=== PATIENT | female | born 1970 | race American Indian/Alaskan Native ===

== ENCOUNTER 2018-11-30 20:03 | Inpatient (IN) | payer MEDICARE ==
[2018-11-30 21:26] LABS: Basophils # (Auto) 0.1 K/mm3 (0.0-0.1); Basophils % (Auto) 0.4 % (0.0-1.8); Eosinophils # (Auto) 0.1 K/mm3 (0.0-0.4); Eosinophils % (Auto) 0.3 % (0.0-4.3); Hematocrit 35.4 % (30.3-42.9); Hemoglobin 11.3 gm/dl (10.1-14.3); Lymphocytes # (Auto) 2.4 K/mm3 (1.2-5.4); Mean Corpuscular HGB Conc 32 % (30-34); Mean Corpuscular Volume 86 fl (79-97); Monocytes # (Auto) 1.8 K/mm3 (0.0-0.8); Monocytes % (Auto) 12.4 % (0.0-7.3); Platelet Count 323 K/mm3 (140-440); Red Blood Count 4.11 M/mm3 (3.65-5.03); Red Cell Distribution Width 13.7 % (13.2-15.2)
[2018-11-30 21:35] LABS: BUN/Creatinine Ratio 11; Blood Urea Nitrogen 10 mg/dL (7-17); Calcium 9.1 mg/dL (8.4-10.2); Hemolysis Index 5
[2018-11-30] MEDS ORDERED: ATROVENT IH ONE (21:51)
[2018-11-30] MEDS ORDERED: SOLU-Medrol IV ONE (21:51)
[2018-11-30] MEDS ORDERED: PROVENTIL IH ONE (21:51)
[2018-11-30] MEDS ORDERED: TYLENOL PO ONE (21:52)
[2018-11-30] MEDS ORDERED: LEVAQUIN 750MG/150ML 750 MG/150 ML BAG IV ONE (21:52)
--- NOTE | 2018-11-30 22:09 | XRay Report ---
FINAL REPORT EXAM: XR CHEST ROUTINE 2V HISTORY: Shortness of breath TECHNIQUE: PA and lateral views of the chest Comparison: None FINDINGS: There are bilateral pulmonary infiltrates, left greater than right. There is no definite evidence of pleural effusion. The cardiac silhouette appears to be normal size. The thoracic aorta is not well visualized. There appears to be distention of the esophagus which is air-filled. The bony structures are notable for dextrocurvature of the thoracic spine. IMPRESSION: 1. Bilateral pulmonary infiltrates, left greater than right. Comparison with previous chest x-ray or CT of the chest would be helpful for further evaluation. 2. Appearance of distention of the esophagus which is air-filled.
--- NOTE | 2018-11-30 22:13 | Emergency Department Report ---
ED Shortness of Breath HPI - General Chief Complaint: Dyspnea/Respdistress Stated Complaint: SHORTNESS OF BREATH, FATIGUE Time Seen by Provider: 11/30/18 21:41 Source: patient Mode of arrival: Ambulatory Limitations: No Limitations - History of Present Illness Initial Comments: 48-year-old female with history of sarcoidosis, chronically on 2 L O2, presents with increasing shortness of breath, productive cough, fever, generalized weakness over the last 3 days. MD Complaint: shortness of breath, cough -: days(s) (3) Severity: moderate Consistency: constant Improves With: nothing Worsens With: nothing Known History Of: other (sarcoidosis) Associated Symptoms: fever, cough - Related Data Allergies Allergy/AdvReac Type Severity Reaction Status Date / Time No Known Allergies Allergy Verified 11/30/18 20:24 ED Review of Systems ROS: Stated complaint: SHORTNESS OF BREATH, FATIGUE Other details as noted in HPI Comment: All other systems reviewed and negative Constitutional: fever Respiratory: cough, shortness of breath Cardiovascular: denies: chest pain Gastrointestinal: nausea, vomiting, diarrhea ED Past Medical Hx - Past Medical History Previous Medical History?: Yes Hx Hypertension: Yes Hx Asthma: Yes Additional medical history: p fibrosis - Surgical History Past Surgical History?: No - Social History Smoking Status: Never Smoker Substance Use Type: None ED Physical Exam - General Limitations: No Limitations General appearance: alert - Head Head exam: Present: atraumatic, normocephalic - Eye Eye exam: Present: normal appearance - ENT ENT exam: Present: mucous membranes moist - Neck Neck exam: Present: normal inspection - Respiratory Respiratory exam: Present: wheezes, rales - Cardiovascular Cardiovascular Exam: Present: normal rhythm, tachycardia - GI/Abdominal GI/Abdominal exam: Present: soft. Absent: distended - Extremities Exam Extremities exam: Present: normal inspection - Neurological Exam Neurological exam: Present: alert, oriented X3 - Psychiatric Psychiatric exam: Present: normal affect, normal mood - Skin Skin exam: Present: warm, dry, intact, normal color ED Course Vital Signs 11/30/18 11/30/18 11/30/18 20:22 21:35 21:39 Temperature 100.5 F H Pulse Rate 133 H 118 H Pulse Rate [ Anterior Bilateral Throughout] Respiratory 18 26 H Rate Respiratory Rate [Anterior Bilateral Throughout] Blood Pressure 158/89 Blood Pressure 132/86 [Left] O2 Sat by Pulse 99 98 Oximetry 11/30/18 11/30/18 11/30/18 21:45 22:01 22:15 Temperature Pulse Rate 120 H 121 H 115 H Pulse Rate [ Anterior Bilateral Throughout] Respiratory 18 15 19 Rate Respiratory Rate [Anterior Bilateral Throughout] Blood Pressure 132/86 132/86 132/86 Blood Pressure [Left] O2 Sat by Pulse 98 99 100 Oximetry 11/30/18 11/30/18 11/30/18 22:31 22:34 23:00 Temperature Pulse Rate 120 H 112 H Pulse Rate [ 98 H Anterior Bilateral Throughout] Respiratory 14 15 Rate Respiratory 12 Rate [Anterior Bilateral Throughout] Blood Pressure 132/86 132/86 Blood Pressure [Left] O2 Sat by Pulse 98 Oximetry 11/30/18 11/30/18 11/30/18 23:15 23:31 23:38 Temperature Pulse Rate 105 H 109 H Pulse Rate [ 97 H Anterior Bilateral Throughout] Respiratory 20 20 Rate Respiratory 14 Rate [Anterior Bilateral Throughout] Blood Pressure 116/71 116/71 Blood Pressure [Left] O2 Sat by Pulse 99 99 Oximetry ED Medical Decision Making - Lab Data Result diagrams: 11/30/18 21:00 11/30/18 21:00 - EKG Data -: EKG Interpreted by Nh EKG shows normal: sinus rhythm, axis, intervals, QRS complexes, ST-T waves Rate: tachycardia (rate 132) - EKG Data Interpretation: no acute changes - Radiology Data Radiology results: report reviewed, image reviewed - Medical Decision Making A 89-year-old female with sarcoidosis presents with fever, increasing shortness of breath, cough, generalized weakness. O2 sats is normal. Patient with fever of 100.5, elevated WBCs of 14.9. Lactic acid normal. Chest x-ray shows bilateral infiltrates. No previous chest x-rays available for comparison. The patient likely has an abnormal chest x-ray given her diagnosis of sarcoidosis. Levaquin given, blood cultures time. Patient given Solu-Medrol and albuterol/Atrovent nebulizer treatments. She will be admitted to hospitalist, Dr. Marie. - Differential Diagnosis COPD, pneumonia, pulm edema Critical care attestation.: If time is entered above; I have spent that time in minutes in the direct care of this critically ill patient, excluding procedure time. ED Disposition Clinical Impression: Pneumonia Disposition: OP ADMIT IP TO THIS HOSP Is pt being admited?: Yes Condition: Stable Time of Disposition: 22:12
[2018-11-30] MEDS ORDERED: TYLENOL PO PRN (23:00)
[2018-11-30] MEDS ORDERED: ROBITUSSIN PO PRN (23:00)
[2018-11-30] MEDS ORDERED: PROVENTIL IH PRN (23:01)
[2018-11-30] MEDS ORDERED: ZOFRAN IV PRN (23:01)
[2018-12-01] MEDS: SOLU-Medrol IV SCH ×3 (05:37→21:48)
--- NOTE | 2018-12-01 06:25 | History and Physical Report ---
CHIEF COMPLAINT: Shortness of breath. HISTORY OF PRESENT ILLNESS: The patient is a 48-year-old female with past history of sarcoidosis, on home O2, presenting with shortness of breath and cough, productive of green sputum. Also, the patient has associated history of fever and generalized weakness going on for about 3 days. There is no history of chest pain. No history of nausea or vomiting. The patient was seen in the Emergency Room. PAST MEDICAL HISTORY: Pertinent for sarcoidosis. Also, the patient has past medical history of hypertension, asthma. PAST SURGICAL HISTORY: Unremarkable. FAMILY HISTORY: Family history is noncontributory. SOCIAL HISTORY: The patient does not smoke, does not drink alcohol and does not use illicit drugs. MEDICATIONS: The patient's home medications include amlodipine 5 mg by mouth daily. Also, the patient is on losartan 100 mg daily. ALLERGIES: There are no known drug allergies. REVIEW OF SYSTEMS: CONSTITUTIONAL: There is fever. There is chills with no diaphoresis. HEENT: There is no headache or sore throat. CARDIOVASCULAR SYSTEM: There is no chest pain or orthopnea. RESPIRATORY SYSTEM: Shortness of breath is present. Cough is present. GASTROINTESTINAL SYSTEM: There is no nausea, no vomiting, no abdominal pain, diarrhea or constipation. NEUROLOGICAL SYSTEM: Generalized weakness noted. No numbness. No dizziness, no altered mental status. MUSCULOSKELETAL SYSTEM: There is no joint pain or swelling. DERMATOLOGICAL SYSTEM: There is no skin rash or itching. GENITOURINARY SYSTEM: There is no dysuria, hematuria or flank pain. Rest of system review is normal. PHYSICAL EXAMINATION: GENERAL: At the time of exam, the patient was found to be alert, oriented x 3 and in mild distress due to shortness of breath. VITAL SIGNS: At the time of presentation showed temperature of 100.5 degrees Fahrenheit, pulse of 133, respirations 18, blood pressure 158/89, O2 sat of 99% on room air. HEENT: Showed pupils to be equal, round, reactive to light and accommodation. Extraocular muscles are intact. NECK: Supple with no JVD or carotid bruit. CARDIOVASCULAR SYSTEM: Showed normal first and second heart sounds with no gallops or murmur. RESPIRATORY SYSTEM: Show good air entry on both sides of the lungs with bilateral scattered crackles and no use of any accessory muscles. GASTROINTESTINAL SYSTEM: Show abdomen to be full, soft, nontender with no organomegaly or rigidity. NEUROLOGICAL: Shows no focal deficit. MUSCULOSKELETAL SYSTEM: Show no joint swelling or tenderness. DERMATOLOGIC SYSTEM: Show no skin rash. GENITOURINARY SYSTEM: Show no costovertebral angle tenderness. PERTINENT LABORATORY DATA AND IMAGING STUDIES: The patient has chest x-ray done that shows bilateral pulmonary infiltrate, left greater than right and the radiologist say that comparison with previous chest x-ray or CT of the chest will be helpful for further evaluation. Appearance of distention of the esophagus, was also noted. Lab results: The patient has CBC done that shows elevated white count of 14,900 with normal hemoglobin, normal hematocrit with elevated segmented neutrophil of 70.9 and the CBC differential. The patient's chemistry showed elevated CO2 of 32 with the rest of chemistry being unremarkable. DIAGNOSES: 1. Bilateral pneumonia. 2. Dyspnea. 3. Chronic sarcoidosis. PLAN OF ACTION: 1. The patient will be admitted to [facility]. 2. The patient will be on IV Levaquin 750 mg daily. 3. The patient will also be on IV methylprednisolone or Solu-Medrol 60 mg q. 8 hours. 4. The patient will be on IV Zofran 4 mg every 8 hours as needed for nausea and vomiting and will be on Tylenol 650 mg by mouth every 4 hours for fever and headache. 5. The patient will be on albuterol nebulizer 2.5 mg every 6 hours as needed for shortness of breath. 6. The patient will be on Tylenol 650 mg by mouth every 4 hours for fever and headache and will be on home medications as shown in medical reconciliation section. 7. The patient will be on Robitussin 200 mg by mouth every 4 hours for cough. 8. The patient will be on oxygen via nasal cannula at 2 liters per minute. 9. The patient's diet will be low sodium diet. JOB# [id number] OCN/NTS MTDD
[2018-12-01 08:18] LABS: Basophils # (Auto) 0.1 K/mm3 (0.0-0.1); Basophils % (Auto) 0.6 % (0.0-1.8); Hematocrit 34.4 % (30.3-42.9); Hemoglobin 11.2 gm/dl (10.1-14.3); Lymphocytes # (Auto) 1.2 K/mm3 (1.2-5.4); Lymphocytes % (Auto) 9.2 % (13.4-35.0); Mean Corpuscular HGB Conc 33 % (30-34); Mean Corpuscular Volume 84 fl (79-97); Monocytes # (Auto) 0.4 K/mm3 (0.0-0.8); Monocytes % (Auto) 3.2 % (0.0-7.3); Platelet Count 324 K/mm3 (140-440); Red Blood Count 4.08 M/mm3 (3.65-5.03); Red Cell Distribution Width 13.6 % (13.2-15.2)
[2018-12-01 08:34] LABS: BUN/Creatinine Ratio 16; Blood Urea Nitrogen 11 mg/dL (7-17); Calcium 9.1 mg/dL (8.4-10.2); Hemolysis Index 1
[2018-12-01] MEDS: NORVASC PO SCH (09:37)
[2018-12-01] MEDS: COZAAR PO SCH (09:37)
[2018-12-01] MEDS: PERCOCET 5/325 PO PRN ×2 (09:58→19:43)
[2018-12-01] MEDS ORDERED: NON-FORMULARY (Losartan [Cozaar] 100 MG) PO SCH (10:00)
[2018-12-01] MEDS ORDERED: NON-FORMULARY (Amlodipine 5 MG) PO SCH (10:00)
[2018-12-01] MEDS ORDERED: D50W (25GM) Syringe IV PRN (11:01)
--- NOTE | 2018-12-01 11:41 | Progress Note ---
Assessment and Plan Assessment and plan: Sepsis due to bilateral pneumonia - Evidenced by fever, tachycardia and tachypnea - Patient is on IV Levaquin - Follow blood cultures UTI - Patient is complaining frequency and foul-smelling urine - Urinalysis Chronic respiratory failure secondary to Sarcoidosis - On IV Solu-Medrol, breathing treatment, oxygen support - Patient is on home oxygen 2 L DVT prophylaxis - on lovenox History Interval history: Patient was seen and evaluated this morning, patient's shortness of breath is getting better. Hospitalist Physical - Physical exam Narrative exam: Not in cardiopulmonary distress. The patient appeared well nourished and normally developed. Vital signs as documented. Head exam is unremarkable. No scleral icterus . Neck is without jugular venous distension, thyromegaly, or carotid bruits. Lungs breath sounds left side of the lung. Cardiac exam reveals regular rate and Rhythm. Abdominal exam reveals normal bowel sounds. Extremities are nonedematous and both femoral and pedal pulses are normal. GROUND SUPPORT EQUIPMENT MECHANIC: Alert and oriented 3. No focal weakness. - Constitutional Vitals: Temp Pulse Resp BP Pulse Ox 98.1 F 85 20 124/70 96 12/01/18 05:59 12/01/18 05:59 12/01/18 05:59 12/01/18 05:59 12/01/18 10:00 Results - Labs CBC & Chem 7: 12/01/18 07:55 12/01/18 07:55 Labs: Laboratory Last Values WBC 12.6 K/mm3 (4.5-11.0) H 12/01/18 07:55 RBC 4.08 M/mm3 (3.65-5.03) 12/01/18 07:55 Hgb 11.2 gm/dl (10.1-14.3) 12/01/18 07:55 Hct 34.4 % (30.3-42.9) 12/01/18 07:55 MCV 84 fl (79-97) 12/01/18 07:55 MCH 28 pg (28-32) 12/01/18 07:55 MCHC 33 % (30-34) 12/01/18 07:55 RDW 13.6 % (13.2-15.2) 12/01/18 07:55 Plt Count 324 K/mm3 (140-440) 12/01/18 07:55 Lymph % (Auto) 9.2 % (13.4-35.0) L 12/01/18 07:55 [place] % (Auto) 3.2 % (0.0-7.3) 12/01/18 07:55 Eos % (Auto) 0.0 % (0.0-4.3) 12/01/18 07:55 Baso % (Auto) 0.6 % (0.0-1.8) 12/01/18 07:55 Lymph # 1.2 K/mm3 (1.2-5.4) 12/01/18 07:55 [place] # 0.4 K/mm3 (0.0-0.8) 12/01/18 07:55 Eos # 0.0 K/mm3 (0.0-0.4) 12/01/18 07:55 Baso # 0.1 K/mm3 (0.0-0.1) 12/01/18 07:55 Seg Neutrophils % 87.0 % (40.0-70.0) H 12/01/18 07:55 Seg Neutrophils # 11.0 K/mm3 (1.8-7.7) H 12/01/18 07:55 Sodium 140 mmol/L (137-145) 12/01/18 07:55 Potassium 4.4 mmol/L (3.6-5.0) D 12/01/18 07:55 Chloride 97.7 mmol/L (98-107) L 12/01/18 07:55 Carbon Dioxide 29 mmol/L (22-30) 12/01/18 07:55 Anion Gap 18 mmol/L 12/01/18 07:55 BUN 11 mg/dL (7-17) 12/01/18 07:55 Creatinine 0.7 mg/dL (0.7-1.2) 12/01/18 07:55 Estimated GFR > 60 ml/min 12/01/18 07:55 BUN/Creatinine Ratio 16 % 12/01/18 07:55 Glucose 245 mg/dL (65-100) H 12/01/18 07:55 Lactic Acid 0.60 mmol/L (0.7-2.0) L 11/30/18 22:38 Calcium 9.1 mg/dL (8.4-10.2) 12/01/18 07:55 NT-Pro-B Natriuret Pep 71.56 pg/mL (0-450) 11/30/18 21:54
[2018-12-01] MEDS: HumaLOG SUB-Q SCH ×3 (13:23→21:49)
[2018-12-01 16:08] LABS: Bilirubin,Urine NEG (Negative); Blood,Urine NEG (Negative); Color,Urine Yellow (Yellow); Mucus,Urine FEW /HPF
[2018-12-01] MEDS ORDERED: LOVENOX SUB-Q SCH (22:00)
[2018-12-01] MEDS ORDERED: LEVAQUIN 750MG/150ML 750 MG/150 ML BAG IV SCH (22:00)
[2018-12-02] MEDS: SOLU-Medrol IV SCH (05:22)
[2018-12-02 06:54] LABS: Basophils % (Auto) 0.2 % (0.0-1.8); Lymphocytes # (Auto) 1.7 K/mm3 (1.2-5.4); Mean Corpuscular HGB Conc 31 % (30-34); Mean Corpuscular Volume 86 fl (79-97); Platelet Count 373 K/mm3 (140-440); Red Blood Count 4.07 M/mm3 (3.65-5.03); Red Cell Distribution Width 13.9 % (13.2-15.2)
[2018-12-02 07:13] LABS: BUN/Creatinine Ratio 23; Blood Urea Nitrogen 16 mg/dL (7-17); Calcium 9.4 mg/dL (8.4-10.2); Hemolysis Index 1
[2018-12-02] MEDS: HumaLOG SUB-Q SCH ×2 (07:30→12:51)
[2018-12-02 07:57] VITALS: BP 146/95
[2018-12-02] MEDS: COZAAR PO SCH (08:59)
[2018-12-02] MEDS: NORVASC PO SCH (09:00)
[2018-12-02] MEDS ORDERED: DELTASONE PO SCH (10:00)
--- NOTE | 2018-12-02 10:37 | Discharge Summary ---
Providers - Providers Date of Admission: 11/30/18 22:20 Date of discharge: 12/02/18 Attending physician: MARY JANE VILLALBA MD Primary care physician: CERTIFIED PROSTHETIST Hospitalization Reason for admission: Pneumonia, sarcoidosis Condition: Stable Pertinent studies: Chest x-ray IMPRESSION: 1. Bilateral pulmonary infiltrates, left greater than right. Comparison with previous chest x-ray or CT of the chest would be helpful for further evaluation. 2. Appearance of distention of the esophagus which is air-filled. Hospital course: 48-year-old -[place] female with past medical history significant for morbid obesity, sarcoidosis, chronic respiratory failure on home oxygen presented to the emergency department for complaints of cough, fever. Patient was worked up in the emergency department and found to have sepsis secondary to bilateral pneumonia, chronic respiratory failure. Patient was admitted and was treated with IV antibiotic, breathing treatments, steroid and patient's symptoms resolved and discharged home. At a time of discharge patient was symptomatic but this was increased due to leukocytosis. Patient was given prescriptions for tapering dose of steroid, Levaquin, guaifenesin and advised to continue on all medications and her home oxygen as at time of discharge. patient's questions an d concerns were addressed as a bedside. Disposition: DC-01 TO HOME OR SELFCARE Time spent for discharge: 32 minutes - Discharge Diagnoses (1) Sarcoidosis Status: Chronic (2) Chronic respiratory failure Status: Chronic (3) Pneumonia Status: Acute Qualifiers: Laterality: bilateral Lung location: lower lobe of lung (4) Sepsis Status: Acute Qualifiers: Sepsis type: sepsis due to unspecified organism Qualified Code(s): A41.9 - Sepsis, unspecified organism Core Measure Documentation - Palliative Care Palliative Care/ Comfort Measures: Not Applicable - Core Measures Any of the following diagnoses?: none Exam - Physical Exam Narrative exam: Not in cardiopulmonary distress. The patient appeared well nourished and normally developed. Vital signs as documented. Head exam is unremarkable. No scleral icterus . Neck is without jugular venous distension, thyromegaly, or carotid bruits. Lungs breath sounds left side of the lung. Cardiac exam reveals regular rate and Rhythm. Abdominal exam reveals normal bowel sounds. Extremities are nonedematous and both femoral and pedal pulses are normal. MATHEMATICS LECTURER: Alert and oriented 3. No focal weakness. - Constitutional Vitals: Temp Pulse Resp BP Pulse Ox 98.4 F 78 20 146/95 98 12/02/18 07:56 12/02/18 07:56 12/02/18 07:56 12/02/18 07:56 12/02/18 07:56 Plan Activity: no restrictions Weight Bearing Status: Full Weight Bearing Diet: regular Additional Instructions: follow up at [facility] in 1-2 weeks if no established PCP. Follow up with: PRIMARY CARE, [Primary Care Provider] - 3-5 Days Prescriptions: guaiFENesin [Robitussin] 200 mg PO Q4H PRN #1 bottle PRN Reason: Cough levoFLOXacin [Levaquin] 750 mg PO QDAY #7 tablet Prednisone [predniSONE 5 mg (6-Day Pack, 21 Tabs)] 5 mg PO .TAPER #1 tab.ds.pk
== END 2018-12-02 16:00 | disposition home or self-care (01) | DRG 871 ==
LOC: EDSEX → ED 20:03 → 4A 22:20
PROVIDERS: ADMIT Internal Medicine; ATTEND Internal Medicine
PROC: 5A09357 Assistance with Respiratory Ventilation, Less than 24 Consecutive Hours, Continuous Positive Airway Pressure (ICD-10-PCS; principal; 2018-12-01)
PROC: 5A09357 Assistance with Respiratory Ventilation, Less than 24 Consecutive Hours, Continuous Positive Airway Pressure (ICD-10-PCS; 2018-12-02)
DX: A41.9 Sepsis, unspecified organism (principal); J18.9 Pneumonia, unspecified organism; N39.0 Urinary tract infection, site not specified; J96.10 Chronic respiratory failure, unspecified whether with hypoxia or hypercapnia; D86.9 Sarcoidosis, unspecified; J45.909 Unspecified asthma, uncomplicated; I10 Essential (primary) hypertension; Z99.81 Dependence on supplemental oxygen; Z79.899 Other long term (current) drug therapy
CPT/HCPCS: 36415; 71046; 80048; 81001; 82140; 82962; 83036; 83880; 85025; 93005; 93010; 94640; 94660; 94760; G0378; J1650; J1815; J1956; J2930; J7512